=== PATIENT | female | born 1970 | race Caucasian/White ===

== ENCOUNTER 2016-05-10 10:19 | Emergency (ER) | payer MEDICAID ==
[~2016-05-10] VITALS: Wt 62.5 kg
[2016-05-10] MEDS ORDERED: IBUPROFEN 800 MG TAB PO ONE (12:00)
--- NOTE | 2016-05-10 13:28 | RADRPT ---
PROCEDURE: Right breast ultrasound. CLINICAL INDICATION: Right breast lump. Fibrocystic disease of breast. TECHNIQUE: Right whole, 4 quadrant breast and retroareolar, sonography was performed. COMPARISON: None. FINDINGS: No solid or suspicious masses. No malignant adenopathy. In the right lower outer quadrant, 8 o'clock position; there is a probably benign, dominant, complic ated 4.8 x 4.2 x 2.4 cm cyst. Right ultrasound-guided cyst aspiration can be performed to confirm b enignity. IMPRESSION: No sonographic evidence of malignancy. Probably benign, dominant, palpable 4.8 cm complicated cyst. Ultrasound-guided cyst aspiration can be performed to confirm benignity. ACR BIRADS 3: Probably benign. Ultrasound-guided cyst aspiration can be performed to confirm benig nity. RPTAT: EE .Tayla Amanda MD, Date Time Electronically viewed and signed by .Tayla Amanda MD, on 05/10/2016 13:27 .F/
[2016-05-10] MEDS ORDERED: LIDOCAINE 1%/EPI (MDV) 20 ML INJ SC ONE (14:00)
[2016-05-10 14:27] VITALS: BP 122/64; PULSE 88; RESP 20; TEMP 98.3
--- NOTE | 2016-05-10 15:30 | ERD ---
ER Documentation Chief Complaint Date/Time DATE: 05/10/16 TIME: 15:24 Chief Complaint right breast lump and right arm pain for the past 2 days HPI Patient is a 46-year-old female with no medical problems who presents with right breast swelling. She says that she has a "stone" in her right breast and is having pain in her right arm as well. She has had off-and-on fever which are subjective and she has not taken her temperature. The patient had a mammogram done in February which recommended an ultrasound. The symptoms started 5 months ago. She was already on antibiotics and had "pain meds". She does not currently have a primary doctor. ROS All systems reviewed and are negative except as per history of present illness. Allergies Allergies: Coded Allergies: No Known Allergy (Unverified , 05/10/16) PMhx/Soc Medical and Surgical Hx: pt denies Medical Hx, pt denies Surgical Hx Hx Alcohol Use: No Hx Substance Use: No Hx Tobacco Use: No Smoking Status: Never smoker FmHx Family History: No diabetes Physical Exam Vitals Vital Signs Date Time Temp Pulse Resp B/P Pulse Ox O2 Delivery O2 Flow Rate FiO2 05/10/16 14:27 98.3 88 20 122/64 98 05/10/16 10:26 98.8 86 20 117/75 98 Physical Exam Const: No acute distress Head: Atraumatic Eyes: Normal Conjunctiva ENT: Normal External Ears, Nose and Mouth. Neck: Full range of motion..~ No meningismus. Resp: Clear to auscultation bilaterally Cardio: Regular rate and rhythm, no murmurs Abd: Soft, non tender, non distended. Normal bowel sounds Skin: No petechiae or rashes Back: No midline or flank tenderness Ext: No cyanosis, or edema Neur: Awake and alert Breast exam: Patient has a palpable mass in the right lateral breast, there is no sign of infection or skin changes, no discharge from the nipple Results 24 hrs Current Medications Medications (Trade) Dose Ordered Sig/Fiona Route PRN Reason Start Time Stop Time Status Last Admin Dose Admin Ibuprofen (Motrin) 800 mg ONCE ONCE PO 05/10/16 12:00 05/10/16 12:01 DC 05/10/16 11:52 Lidocaine/ Epinephrine (Xylocaine 1%/ Epi (Mdv) 20 ml) 20 ml ONCE ONCE SC 05/10/16 14:00 1/20/17 14:01 DC Procedures/MDM Cyst aspiration by me: Location: Right breast Anesthesia: Local 1% Lidocaine with epinephrine Technique: 18-gauge needle used for aspiration Packing: None Complications: Neurovascularly intact post procedure 48 hour wound check. Scar minimization instructions given. Patient's skin symptoms have stabilized while they have been evaluated in the department and are appropriate for outpatient care and work up. Exam and w/u not consistent w/ sepsis, deep space infection, or foreign body. The patient will need to follow-up with the local clinics within 24-48 hours. I do not believe that she requires antibiotics at this time as this was not pus that was aspirated it was more serous fluid. I did discuss the possibility of breast cancer with the patient but at this point I feel this is less likely and I feel that this was most likely an uncomplicated process. Departure Diagnosis: Primary Impression: Cyst of breast Additional Impression: Breast pain Condition: Fair Patient Instructions: Sebaceous Cyst, Infected (I And D) Referrals: [facility] YOU HAVE RECEIVED A MEDICAL SCREENING EXAM AND THE RESULTS INDICATE THAT YOU DO NOT HAVE A CONDITION THAT REQUIRES URGENT TREATMENT IN THE EMERGENCY DEPARTMENT. FURTHER EVALUATION AND TREATMENT OF YOUR CONDITION CAN WAIT UNTIL YOU ARE SEEN IN YOUR DOCTORS OFFICE WITHIN THE NEXT 1-2 DAYS. IT IS YOUR RESPONSIBILITY TO MAKE AN APPOINTMENT FOR FOLOW-UP CARE. IF YOU HAVE A PRIMARY DOCTOR --you should call your primary doctor and schedule an appointment IF YOU DO NOT HAVE A PRIMARY DOCTOR YOU CAN CALL OUR PHYSICIAN REFERRAL HOTLINE AT IF YOU CAN NOT AFFORD TO SEE A PHYSICIAN YOU CAN CHOSE FROM THE FOLLOWING [facility] [address] [facility] [address] [facility] [address] [facility] [address] [facility] [address] [facility] [facility]. [address] Additional Instructions: Call your primary care doctor TOMORROW for an appointment during the next 1-2 days.See the doctor sooner or return here if your condition worsens before your appointment time. HOLDEN GREGG MD May 10, 2016 15:30
== END 2016-05-10 14:28 | disposition home or self-care (01) ==
LOC: FTE 10:19
DX: N60.01 Solitary cyst of right breast (principal); N64.4 Mastodynia
CPT/HCPCS: 10160; 76642; Z7502; Z7610